=== PATIENT | female | born 1990 | race Caucasian/White ===

== ENCOUNTER 2025-05-08 05:26 | Observation (INO) | payer BC, SELFPAY ==
[2025-05-08 05:19] VITALS: PULSE 101; O2SAT 100
[2025-05-08 05:24] VITALS: PULSE 106; O2SAT 100
[2025-05-08 05:29] VITALS: PULSE 98; O2SAT 100
--- NOTE | 2025-05-08 06:05 | PGE_ITS ---
Date of service: 05/08/25 Time of Service: 06:06 Pelvic Exam Dilation: 0.5 Effacement (%): 50 station: -2 Cervix Position: mid Consistency: soft Contractions Monitor Mode: External Contraction Frequency(min): 8 Contraction Duration(sec): 60 Intensity: Mild/Moderate Assessment and Plan Assessment and plan (1) Grand multiparity: Status: Acute Assessment and plan: 6 para 5 at 35 weeks today, irregular uterine contractions. History of fast labors. Treatment and care at [facility] for maternal- medicine. Jeanne ent has POTS syndrome which seems reasonably well-controlled currently. (2) Uterine contractions: Status: Acute Assessment and plan: Possible latent labor. Discharge to home, encouraged the patient to present to [facility] for reevaluation and more monitoring as she is intending on delivering there. (3) POTS (postural orthostatic tachycardia syndrome): Status: Acute (4) Anemia affecting : Status: Acute Assessment and plan: Patient has iron infusions scheduled. Objective Pulse Pulse Ox 98 H 100 05/08/25 05:29 05/08/25 05:29 Subjective Interval history since last seen: patient presented to our emergency department this morning at the request of her primary obstetric providers at [facility]. She is 35 weeks today 6 para 5 with 4 term deliveries and 1 delivery. She has had care at [facility] with maternal- medicine due to POTS. She was evaluated by them yesterday and cervix was closed per the patient. She has had irregular uncomfortable sensations in her lower abdomen and pelvis. She feels like this is very different than her previous labors which were rapid. She denies loss of fluid. She has been recently sexually active. She has no fevers or chills or vaginal bleeding.
[2025-05-08 06:06] VITALS: BP 103/63; PULSE 92; TEMP 37
--- NOTE | 2025-05-08 06:14 | PDOC.NST_ITS ---
Date of service: 05/08/25 Time of Service: 06:14 NST Evaluation Reason for NST Reasons for Nonstress Test: OTHER, SEE COMMENT Reason for NST Other: Rule out labor Gestational Age Gestational Age in Weeks and Days: 35 Weeks and 0Days Test and Monitor Explained Test/Monitor Explained: Test Explained, Monitor Explained and Patient Verbalized Understanding Vital Signs Blood Pressure: 103/63 Pulse: 92 Temperature: 98.6 F Urine Results Urine Protein: Negative Urine Ketones: Negative Urine Glucose: Negative Urine Blood: Negative NST Information Date on Monitor: 05/08/25 Time on Monitor: 04:57 Date off Monitor: 05/08/25 Time off Monitor: 05:41 Total Time on Monitor: 44 NST Interventions: None Contraction Frequency: 7-8 NST Evaluation Patient States Movement: Present FHR Baseline: 145 Variability: Moderate 6-25 bpm Accelerations: 15x15 Decelerations: None NST Results: Reactive Note Ultrasound Done: ZENIA Total ZENIA: 8 Other Pertinent Findings: Presentation (cephalic) Coding for ZENIA w/NST: Completed Exam and Presentation Coding for Presentation w/NST: Completed Exam. NST Note Note: Category 1, reactive nonstress test. Group B strep performed. Not an active labor. [facility] maternal- medicine notified. NST Reviewed and Verified by: Shanthi Beltrán
[2025-05-08 06:16] VITALS: BP 103/63; PULSE 92; TEMP 37
== END 2025-05-08 06:15 | disposition home or self-care (01) ==
LOC: OBS 05:34
PROVIDERS: Admitting Provider Obstetrics & Gynecology; Visit Provider Obstetrics & Gynecology
DX: O47.03 False labor before 37 completed weeks of gestation, third trimester (principal); O99.013 Anemia complicating pregnancy, third trimester; O99.353 Diseases of the nervous system complicating pregnancy, third trimester; Z3A.35 35 weeks gestation of pregnancy; D64.9 Anemia, unspecified; G90.A Postural orthostatic tachycardia syndrome [POTS]
CPT/HCPCS: 85027; 86850; 86900; 86901; 87081

== ENCOUNTER 2025-06-02 23:03 | Outpatient (CLI) | payer BC, SELFPAY ==
[2025-06-02 23:07] VITALS: BP 111/68; PULSE 86; RESP 16; TEMP 36.1; O2SAT 100
--- NOTE | 2025-06-02 23:13 | W.ED.GENAD ---
Discharge Plan Disposition Patient Disposition: Admit to [facility] Condition: Good Discharge Details Clinical Impression: , Pelvic cramping Admit Date/Time: 06/02/25 23:38 Admit Provider: Josefina Hernández Attending Provider: Josefina Hernández Primary Care Provider: Unknown,Unknown ED Provider: Cresencio Buchanan HPI General Date/Time Provider Initiated Documentation: 06/02/25 23:06. HPI Narrative: This is a 35-year-old female with a past medical history of POTS, inappropriate sinus tachycardia, who is a G5, P4 currently 39 weeks who presents today for evaluation of pelvic cramping. Patient is scheduled to be induced at [facility] within a week. She states that for the last 2 days she has had cramping, pressure, and some back pain. She denies any fever or chills. She denies any vaginal discharge or gush of vaginal fluid. She denies any vaginal bleeding. No other complaints at this time. No other modifying factors. Related Data Allergies Allergy/AdvReac Type Severity Reaction Status Date / Time Penicillins Allergy rash Verified 06/02/25 23:16 General MONICO: 3 Exam Narrative Exam Narrative: 1.Const: Well-nourished, Well-developed, appearing stated age 2.Eyes: PERRL, no conjunctival injection, and symmetrical lids. 3.ENT: Atraumatic external nose and ears. Moist MM. Neck: Symmetric, trachea midline, No thyromegaly. 4.CVS: +S1/S2, Peripheral pulses 2+ and equal in all extremities. Brisk capillary refill in all extremities. 5.RESP: Unlabored respiratory effort. Clear to auscultation bilaterally. No wheezes rales or rhonchi 6.GI: Soft, Nontender/Nondistended, No hepatosplenomegaly. No guarding or rebound. Appropriately gravid abdomen. Vaginal exam was performed with nurse threshing machine operator Mateusz at bedside. Cervix measures around 2 to 3 cm at this time. No presenting parts. No blood. 7.MSK: Normocephalic/Atraumatic, Extremities w/o deformity or ttp No cyanosis or clubbing, Normal movement of all extremities 8.Skin: Warm, Dry. No rashes or lesions. 9.Neuro: neon sign installer II-XII grossly intact. Sensation grossly intact, no focal neurologic deficits. 10.Psych: (AAO) x3. Appropriate mood and affect Medical Decision Making This is a 35-year-old female with a past medical history of POTS, inappropriate sinus tachycardia, who is a G5, P4 currently 39 weeks who presents today for evaluation of pelvic cramping. Patient is scheduled to be induced at [facility] within a week. She states that for the last 2 days she has had cramping, pressure, and some back pain. She denies any fever or chills. She denies any vaginal discharge or gush of vaginal fluid. She denies any vaginal bleeding. No other complaints at this time. No other modifying factors. Exam demonstrates an appropriately gravid abdomen, cervix measures around 2 to 3 cm. Notably posterior. Bedside ultrasound shows a heart rate around 145, head is positioned vaginally. We did contact Dr. Sara Huang, discussed the case with her. She request transition of patient to the OB area for further monitoring. Patient hemodynamically stable and not in active delivery at this time. I have extensively reviewed the treatment plan with the patient. I have addressed all patient concerns at this time. I have also discussed the plan with the admitting physician and they agree with the current assessment and plan and have agreed to assume responsibility for the patient. All parties demonstrate verbal understanding and agreement with our assessment and plan at this time. The documentation in this chart was dictated using [employer] dictation software. Please excuse any dictation errors. PFSH All Active Problems (Updated 06/02/25 @ 23:31 by Cresencio Buchanan DO) Pelvic cramping (Acute) (Acute) Anemia affecting (Acute) POTS (postural orthostatic tachycardia syndrome) (Acute) Care and treatment with cardiology at [facility] Uterine contractions (Acute) Latent labor Grand multiparity (Acute) 6 para 5 1 delivery, [facility] 06/12/2025 Social History Smoking/Tobacco Use Status: Never Smoking risk assessment performed?: Yes Alcohol Intake: never Drug use: Never Substance use type: does not use History History 6 Para 5 Hx # Term Pregnancies 4 Multiple births Hx # Pregnancies 1 Ectopic pregnancies AB induced Hx Number of Living Children 5 AB spontaneous
[2025-06-02 23:39] LABS: Glucose Negative (Negative)
--- NOTE | 2025-06-03 00:07 | HPE_ITS ---
Date of service: 06/03/25 Time of Service: 00:07 Assessment and Plan Assessment and plan (1) Uterine contractions: Status: Acute Assessment and plan: @38.5wks per pt report with no e/o active labor at this time. FHT is Cat 1. Pt [place] [facility] [place]. We will work to obtain her records to clarify the details of her in case she returns again. Otherwise, she will call her Ob if sxms change. OB-HPI Labor/Delivery History of Present Illness Reason for Visit: 39 weeks/ cramping Chief Complaint: Uterine Contractions. JOSHUA Calculator Estimated Delivery Date Method Current WG Current Estimate 06/12/25 Manual 38w 5d Comments: Pt c/o cramping all day and lots of pelvic pressure. No bleeding or leaking fluid. Good movement. History of Present Narrative: Pt is a who is planning delivery at [facility] but came here because it's closer. She has POTS. PFSH All Active Problems (Updated 06/02/25 @ 23:31 by Cresencio Buchanan DO) Pelvic cramping (Acute) (Acute) Anemia affecting (Acute) POTS (postural orthostatic tachycardia syndrome) (Acute) Care and treatment with cardiology at [facility] Uterine contractions (Acute) Latent labor Grand multiparity (Acute) 6 para 5 1 delivery, [facility] 06/12/2025 Social History Smoking/Tobacco Use Status: Never Smoking risk assessment performed?: Yes Alcohol Intake: never Drug use: Never Substance use type: does not use History History 6 Para 5 Hx # Term Pregnancies 4 Multiple births Hx # Pregnancies 1 Ectopic pregnancies AB induced Hx Number of Living Children 5 AB spontaneous Meds Allergies and Home Medications Allergies Allergy/AdvReac Type Severity Reaction Status Date / Time Penicillins Allergy rash Verified 06/02/25 23:16 Exam Physical Exam Vital signs: Temp Pulse Resp BP Pulse Ox 97.0 F L 86 16 111/68 100 06/02/25 23:07 06/02/25 23:07 06/02/25 23:07 06/02/25 23:07 06/02/25 23:07 Vital Signs Reviewed: Yes Narrative: Pt lying comfortably in bed Detailed Labor and Delivery Exam Dilation: 2 Dykes Score: Cervical Points Exam 0 1 2 3 Dilation Closed 1-2cm 3-4 cm 5-6cm Effacement 0-30% 40-50% 60-70% 80% Consistency Firm Medium Soft Station -3 -2 -1,0 +1,+2 Position Posterior Mid Anterior Comments: Cervix soft and posterior but does not seem to be more significantly dilated than 2cm (last exam per pt report). Fetus A Heart Rate Baseline: 120 Monitor Accelerations: 15 X 15 Monitor Decelerations: None Variability: Moderate (6-25 BPM) Presentation: Vertex Categories: Category I Abdominal Exam Abdominal Exam: Normal (gravid, nontender) Risk Assessment Risks Reviewed Risks Reviewed Upon Admission: Yes WW Pocus Exam Exam testing Date/Time of Exam: Date of exam: 06/03/2025 Time of exam: 12:18 am JOSHUA Calculator Estimated Delivery Date Method Current Current Estimate 06/12/25 Manual 38w 5d position Gestational age (weeks): 39 Presentation: Vertex Coding for Transabdominal exam: Complete exam
[2025-06-03 05:29] VITALS: BP 109/59; PULSE 87; TEMP 36.5
== END 2025-06-03 05:31 | disposition home or self-care (01) | DRG 833 ==
LOC: ER 23:36 → OBS 23:55 → BCD 06-12 10:37
PROVIDERS: Emergency Provider Student in an Organized Health Care Education/Training Program; Visit Provider Obstetrics & Gynecology
DX: O47.1 False labor at or after 37 completed weeks of gestation (principal); Z3A.38 38 weeks gestation of pregnancy; G90.A Postural orthostatic tachycardia syndrome [POTS]; O99.353 Diseases of the nervous system complicating pregnancy, third trimester; O99.013 Anemia complicating pregnancy, third trimester; D64.9 Anemia, unspecified
CPT/HCPCS: 80053; 86850; 86900; 86901; 99285; 59025; 81003; 85025